=== PATIENT | female | born 1965 | race Caucasian/White ===

== ENCOUNTER 2017-06-24 07:29 | Day surgery (SDC) | payer BC ==
[2017-06-22 08:55] VITALS: BMI 40.7
[~2017-06-24 07:29] MED LIST: DEXAMETHASONE SOD PHOSPHATE 10 MG/ML 1 ML VIAL IV ONE; DEXAMETHASONE SOD PHOSPHATE 4 MG/ML 1 ML VIAL IV ONE; FAMOTIDINE 20 MG/2 ML VIAL IV ONE; HYDROmorphone 0.5 MG/0.5 ML SYRINGE IVP PRN; MIDAZOLAM 2 MG/2 ML VIAL IV PRN; ONDANSETRON 4 MG/2 ML VIAL IVP ONE; SCOPOLAMINE 1.5MG/72HR PATCH TRANSDERM ONE; ceFAZolin 1,000 MG in DEXTROSE/WATER 1 50ML.BAG IV ONE
[2017-06-24] MEDS: OXYMETAZOLINE 0.05% NASL SPRAY 1 SPRAY BOTTLE NASAL ONE ×4 (08:00→08:22)
[2017-06-24] MEDS: LACTATED RINGERS 1,000 ML IV SCH ×2 (08:10→10:18)
[2017-06-24] MEDS ORDERED: SUCCINYLCHOLINE CHLORIDE 100 MG/5 ML SYR IV ONE (08:41)
[2017-06-24] MEDS ORDERED: LIDOCAINE 1% INJ 10MG/ML (20 ML MDV) ONE (08:41)
[2017-06-24] MEDS ORDERED: MIDAZOLAM 2 MG/2 ML VIAL ONE (08:41)
[2017-06-24] MEDS ORDERED: PROPOFOL 10 MG/ML 20 ML VIAL IV ONE (08:41)
[2017-06-24] MEDS ORDERED: ONDANSETRON 4 MG/2 ML VIAL ONE (08:41)
[2017-06-24] MEDS ORDERED: DEXAMETHASONE SOD PHOS (MDV) 100 MG/10 ML VIAL ONE (08:41)
[2017-06-24] MEDS ORDERED: fentaNYL (PF) 50 MCG/ML 2 ML AMP ONE (08:41)
[2017-06-24] MEDS ORDERED: ePHEDrine SULFATE/0.9% NACL/PF 50 MG/5 ML SYRINGE IV ONE (08:41)
[2017-06-24] MEDS ORDERED: BACITRACIN 500 UNIT/GM OINT 28.4 GM TUBE TOPICAL ONE (09:08)
[2017-06-24] MEDS ORDERED: FLUORESCEIN STRIPS 1 MG STRIP MISCELLANE ONE (09:08)
[2017-06-24] MEDS ORDERED: EPINEPHrine 1 MG/ML (MDV) 30 ML VIAL TOPICAL ONE (09:09)
[2017-06-24] MEDS ORDERED: LIDOCAINE 2%-EPI 1:100,000 20 ML VIAL SUBMUCOSAL ONE ×2 (09:09)
--- NOTE | 2017-06-24 09:25 | P.OP ---
Date of Procedure: 06/24/17 Preoperative Diagnosis: chronic maxillary sinusitis Atypical facial pain Intranasal synechiae Postoperative Diagnosis: same Procedure(s) Performed: functional endoscopic sinus surgery with bilateral maxillary antrostomies and lysis of intranasal synechiae bilaterally. Placement of propel bilaterally Anesthesia: MARKIEA Surgeon: Jayant Garcia Estimated Blood Loss (ml): 5 Pathology: other (Sinonasal) Condition: stable Disposition: PACU Indications for Procedure: patient has chronic maxillary sinusitis with associated maxillary sinus pain pressure fullness. Opening of the maxillary sinuses both above and below the inferior turbinate was recommended along with placement of propel. Operative Findings: patient had bilateral maxillary sinus disease which was removed. Synechiae was lysed. Propel was placed. Description of Procedure: this patient was taken to the operative room and placed in the supine position. A general inhalation anesthetic was administered to the patient by mask and subsequently intubated with a cuffed endotracheal tube by the department of anesthesia with a functioning IV line in place. The patient was monitored throughout the entire case by the department of anesthesia. A sphenopalatine nerve block was placed bilaterally along with injection of the middle turbinate and lateral nasal wall with lidocaine 1% with epinephrine 1 100,000. Approximately 10 minutes were allowed wait for full vasoconstrictive effects to take place. Bilateral infraturbinal maxillary antrostomies were performed with use of a Esme. maxillarysinuses were open underneath the inferior turbinates widely. We did this with endoscopic visualization.after the maxillary sinuses were open we entered the maxillary sinuses with a 0 endoscope and we remove diseased tissue. We did the same and open the maxillary sinuses above the inferior turbinate with a backbiting forceps straight boss etc. After the maxillary sinuses were open we did lyse several synechiae bilaterally and released the middle turbinate. We inserted propel bilaterally underneath the middle turbinate and the patient tolerated this well. Follow-up will be in the office in 1 week and the patient is to contact me if any problems should arise.
[2017-06-24 09:36] VITALS: RESP 16; TEMP 97
[2017-06-24] MEDS ORDERED: PROMETHAZINE INJ 25 MG/ML 1 ML VIAL IVPB ONE (09:55)
[2017-06-24 11:12] VITALS: BP 137/86
[2017-06-24 11:14] VITALS: PULSE 84
== END 2017-06-24 11:48 | disposition home or self-care (01) ==
LOC: OR 07:29
PROVIDERS: ATTEND Otolaryngology
DX: J32.0 Chronic maxillary sinusitis (principal); J34.89 Other specified disorders of nose and nasal sinuses; K21.9 Gastro-esophageal reflux disease without esophagitis; Z87.891 Personal history of nicotine dependence; Z91.09 Other allergy status, other than to drugs and biological substances
CPT/HCPCS: 31267; 30560; 88305; 88342; 88341; C2625; J0171; J2250; J1100 ×2; J2550; J2405; J2001; J3010; J0690; J0330; J2704

== ENCOUNTER → 2019-03-21 | Outpatient (CLI) | payer OTHER | END | disposition home or self-care (01) | LOC: RADMRIMAIN 16:05 | PROVIDERS: ATTEND Orthopaedic Surgery | DX: Z53.9 Procedure and treatment not carried out, unspecified reason (principal) ==